=== PATIENT | female | born 1960 ===

== ENCOUNTER 2017-12-17 08:42 | Emergency (ER) | payer OTHER ==
[~2017-12-17] VITALS: Ht 160 cm; Wt 49.9 kg
[~2017-12-17 08:42] MED LIST: AMITRIPTYLINE H25 MG; FLECTOR30 EA TP; PNEU16DI2; SUMATRIPTAN SUC50 MG; TIZANIDINE HCL2 MG PO; TORADOL60 MG IM
[2017-12-17] MEDS ORDERED: LOTREL 5-10 MG1 CAP PO (08:56)
[2017-12-17] MEDS ORDERED: TENCON 50-3251 EACH PO (08:57)
== END 2017-12-17 13:17 | disposition home or self-care (01) ==
LOC: ER 08:42
DX: G43.809 Other migraine, not intractable, without status migrainosus (principal)

== ENCOUNTER 2019-02-19 09:20 | Emergency (ER) | payer OTHER ==
[~2019-02-19] VITALS: Ht 157.5 cm; Wt 54.4 kg
[~2019-02-19 09:20] MED LIST changes: +LOTREL 5-10 MG1 CAP PO; +ORPHENADRINE C100 MG PO; +TENCON 50-3251 EACH PO; +ZANTAC150 M3 PO
== END 2019-02-19 15:52 | disposition home or self-care (01) ==
LOC: ER 09:20
DX: G43.909 Migraine, unspecified, not intractable, without status migrainosus (principal)